=== PATIENT | male | born 1985 | race Caucasian/White ===

== ENCOUNTER 2018-05-04 17:44 | Emergency (ER) | payer OTHER ==
[2018-05-04] MEDS: diphenhydrAMINE INJ 50MG/ML VIAL (J1200) IV (19:13)
[2018-05-04] MEDS: PANTOPRAZOLE 40MG INJ (PROTONIX) (C9113) IV (19:13)
[2018-05-04] MEDS: NS 1,000 ML IV (19:13)
[2018-05-04] MEDS: KETOROLAC 30 MG/ML VIAL (J1885) IV (19:14)
[2018-05-04] MEDS: ONDANSETRON 4MG/2ML VIAL (J2405) IV (19:14)
[2018-05-04 19:28] LABS: BASO % 0.5 % (0.0-1.0); EOS # 0.3 10^3/uL (0.0-0.50); EOS % 3.3 % (0.0-3.0); HEMATOCRIT 42.6 % (42.0-52.0); HEMOGLOBIN 14.6 g/dl (13.5-17.5); IMMATURE GRANULOCYTE % 0.3 % (0-3.0); LYMPH # 2.2 10^3/uL (1.5-4.5); LYMPH % 28.3 % (24.0-44.0); MEAN CORPUSCULAR HEMOGLOBIN 31.8 pg (27.0-33.0); MEAN CORPUSCULAR HGB CONC 34.3 g/dl (32.0-36.5); MEAN CORPUSCULAR VOLUME 92.8 fl (80.0-96.0); MONO # 0.5 10^3/uL (0.0-0.8); MONO % 6.5 % (0.0-5.0); NEUTROPHILS # 4.6 10^3/uL (1.8-7.7); NEUTROPHILS % 61.1 % (36.0-66.0); PLATELET COUNT, AUTOMATED 184 10^3/uL (150-450); RED BLOOD COUNT 4.59 10^6/uL (4.30-6.10); RED CELL DISTRIBUTION WIDTH 12.1 % (11.5-14.5); WHITE BLOOD COUNT 7.6 10^3/uL (4.0-10.0)
[2018-05-04 19:42] LABS: ALBUMIN 4.2 GM/DL (3.2-5.2); ALBUMIN/GLOBULIN RATIO 1.62 (1.00-1.93); ALKALINE PHOSPHATASE 50 U/L (45-117); ALT/SGPT 16 U/L (12-78); ANION GAP 6 MEQ/L (8-16); AST/SGOT 7 U/L (7-37); BILIRUBIN,DIRECT 0.3 MG/DL (0.0-0.2); BILIRUBIN,TOTAL 0.8 MG/DL (0.2-1.0); BLOOD UREA NITROGEN 16 MG/DL (7-18); CALCIUM LEVEL 9.2 MG/DL (8.5-10.1); CARBON DIOXIDE LEVEL 30 MEQ/L (21-32); CHLORIDE LEVEL 105 MEQ/L (98-107); CREATININE FOR GFR 0.88 MG/DL (0.70-1.30); GLOMERULAR FILTRATION RATE > 60.0 (>60); GLUCOSE, FASTING 94 MG/DL (70-100); LIPASE 57 U/L (73-393); POTASSIUM SERUM 3.9 MEQ/L (3.5-5.1); SODIUM LEVEL 141 MEQ/L (136-145); TOTAL PROTEIN 6.8 GM/DL (6.4-8.2)
[2018-05-04 20:54] LABS: KETONE, URINE AUTO RFX NEGATIVE (NEGATIVE); LEUKOCYTE ESTERASE UR AUTO RFX NEGATIVE (NEGATIVE); NITRITE, URINE AUTO RFX NEGATIVE (NEGATIVE); RBC, URINE AUTO RFX 0 /HPF (0-3); SPECIFIC GRAVITY UR AUTO RFX 1.003 (1.002-1.035); SQUAM EPITHELIAL CELL UR AURFX 0 /HPF (0-6); WBC, URINE AUTO RFX 0 /HPF (0-3)
== END 2018-05-04 22:32 | disposition home or self-care (01) ==
LOC: M ED 17:44
DX: R10.9 Unspecified abdominal pain (principal)
CPT/HCPCS: C9113

== ENCOUNTER 2019-07-21 08:59 | Emergency (ER) | payer OTHER ==
[~2019-07-21] VITALS: Ht 172.7 cm; Wt 51.3 kg
[~2019-07-21 08:59] MED LIST: ALPR1TAB3; ASAC800T3 PO; DIVA500T9; QUET1TAB8 PO
[2019-07-21] MEDS ORDERED: CREO24CA PO (09:09)
[2019-07-21] MEDS ORDERED: VALA1TAB64 PO (09:09)
[2019-07-21] MEDS ORDERED: OXYC15TA76 PO (09:09)
[2019-07-21] MEDS ORDERED: NS 1,000 ML IV ONE (09:30)
[2019-07-21] MEDS ORDERED: HALOPERIDOL 5 MG/ML VIAL (J1630) IV STA (09:30)
[2019-07-21 09:50] LABS: BASO % 0.5 % (0.0-1.0); HEMATOCRIT 49.4 % (42.0-52.0); HEMOGLOBIN 16.6 g/dl (13.5-17.5); LYMPH # 1.3 10^3/uL (1.5-5.0); LYMPH % 21.3 % (24.0-44.0); MEAN CORPUSCULAR HEMOGLOBIN 30.9 pg (27.0-33.0); MEAN CORPUSCULAR HGB CONC 33.6 g/dl (32.0-36.5); MEAN CORPUSCULAR VOLUME 91.8 fl (80.0-96.0); MONO # 0.3 10^3/uL (0.0-0.8); MONO % 4.4 % (0.0-5.0); NEUTROPHILS # 4.5 10^3/uL (1.5-8.5); NEUTROPHILS % 73.6 % (36.0-66.0); PLATELET COUNT, AUTOMATED 261 10^3/uL (150-450); RED BLOOD COUNT 5.38 10^6/uL (4.30-6.10); WHITE BLOOD COUNT 6.2 10^3/uL (4.0-10.0)
--- NOTE | 2019-07-21 09:59 | REP ---
REASON: Chest pain. The technique utilized in obtaining the radiograph has magnified the cardiac silhouette and accentuated the interstitial markings. FINDINGS: The superior mediastinal structures are midline. The cardiac silhouette is unremarkable in size, shape, and position. The diaphragmatic surfaces of the lungs are regular, and the costophrenic angles are clear. The pulmonary michael are clear. The imaged osseous structures are intact. IMPRESSION: There is no acute cardiopulmonary disease. Electronically Signed by Jatin Martinez DO 07/21/2019 10:11 A
[2019-07-21 10:56] LABS: ALBUMIN 5.1 GM/DL (3.2-5.2); ALT/SGPT 21 U/L (12-78); AMYLASE 26 U/L (25-115); BILIRUBIN,DIRECT 0.6 MG/DL (0.0-0.2); BILIRUBIN,TOTAL 2.1 MG/DL (0.2-1.0); BLOOD UREA NITROGEN 17 MG/DL (7-18); CALCIUM LEVEL 9.8 MG/DL (8.5-10.1); CARBON DIOXIDE LEVEL 23 MEQ/L (21-32); CHLORIDE LEVEL 100 MEQ/L (98-107); CK-MB VALUE MASS < 1.0 NG/ML (<3.6); CPK CREATINE PHOSPHOKINASE 100 U/L (39-308); CREATININE FOR GFR 1.05 MG/DL (0.70-1.30); FREE T4 1.08 NG/DL (0.76-1.46); GLOMERULAR FILTRATION RATE > 60.0 (>60); GLUCOSE, FASTING 86 MG/DL (70-100); LIPASE 43 U/L (73-393); POTASSIUM SERUM 4.1 MEQ/L (3.5-5.1); SODIUM LEVEL 135 MEQ/L (136-145); THYROID STIMULATING HORMONE 0.354 uIU/ML (0.358-3.740); TOTAL PROTEIN 8.9 GM/DL (6.4-8.2); TROPONIN I < 0.02 NG/ML (< 0.10)
[2019-07-21 11:30] VITALS: BP 123/76
--- NOTE | 2019-07-22 07:27 | REP ---
REASON: Upper abdominal pain. PRIORS: None. The patient is status-post cholecystectomy. Multiple ultrasonographic images of the liver show mildly increased periportal echoes without evidence of a mass or ductal dilatation. The common bile duct measures 4.2 mm. The imaged portion of the pancreas and right kidney are unremarkable. There is no free fluid in the abdomen. IMPRESSION: There is a mild diffuse increase in the periportal echoes which could be secondary to a plethora of inflammatory conditions, all of which need to be correlated clinically. Does the patient have inflammatory bowel disease? Does the patient have symptoms referable to cholangitis? Certainly, the finding could be secondary to chronic changes, however there are no prior ultrasounds for comparison. Electronically Signed by Jatin Martinez DO 07/26/2019 04:12 P
--- NOTE | 2019-07-22 08:28 | ECGEPIP ---
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
--- NOTE | 2019-07-29 08:51 | ED PDOC ---
Post-Departure Follow-Up keyon lane faxed formal report of abdominal us for fu Shekhar Hayes MD Jul 29, 2019 08:51
== END 2019-07-21 11:57 | disposition left against medical advice (07) ==
LOC: M ED 08:59
DX: R07.9 Chest pain, unspecified (principal); R00.0 Tachycardia, unspecified; R10.9 Unspecified abdominal pain; G89.29 Other chronic pain; K86.9 Disease of pancreas, unspecified; K58.9 Irritable bowel syndrome, unspecified; F31.9 Bipolar disorder, unspecified; Z88.6 Allergy status to analgesic agent; Z79.899 Other long term (current) drug therapy; Z79.891 Long term (current) use of opiate analgesic
CPT/HCPCS: 71045; 76705; 80048; 80076; 81001; 82150; 82550; 82553; 83690; 84439; 84443; 85025; 93005; 93041; 94760; 96361; 96374; 99284; J1630

== ENCOUNTER → 2020-12-10 | Outpatient (CLI) | payer OTHER ==
[~2020-12-10] MED LIST changes: +CREO24CA PO; +OXYC-1 PO; +QUET100T2 PO; -QUET1TAB8 PO; +VALA1TAB5 PO
--- NOTE | 2020-12-12 00:27 | ECWPNPC ---
PATIENT NAME: JOSEPH HARRINGTON : 1985 GENDER: MALE VISIT DATE: 12/10/2020 DISCHARGE DATE: 12/10/20 1422 VISIT LOCKED DATE TIME: PHYSICIAN: DEL CHILDRESS RESOURCE: DEL CHILDRESS REASON FOR APPOINTMENT 1. CHRONIC PANCREATITIS HISTORY OF PRESENT ILLNESS GENERAL: HPI 35 YEAR OLD MALE IN FOR INITIAL PAIN CONSULT REGARDING CHRONIC PANCREATITIS. PANCREATITIS IS BELIEVED TO HAVE STEMMED FROM CHRONIC ALCOHOL USE WHEN PATIENT WAS YOUNGER. HE RATES HIS PAIN CURRENTLY AT A 6 OUT OF 10 AND DESCRIBES IT CONTINUOUS, SHARP, AND STABBING.. - - - - - -. FALL RISK SCREENING: SCREENING NO FALLS REPORTED IN THE LAST YEAR . PAIN SCREENING: PATIENT HAS A COMPLAINT OF ACUTE OR CHRONIC PAIN :YES LOCATION OF PAIN:ABDOMEN, UPPER BACK INTENSITY OF PAIN (SCALE OF 1 TO 10):6 6 ON PAIN SCALE WITH MEDICATION WHAT DOES YOUR PAIN FEEL LIKE:CONTINOUS, SHARP, STABBING, OTHER TWISTING ON THE INSIDE DURATION:CONTINOUS, AWAKENS FROM SLEEP PAIN IS INCREASED BY:ACTIVITIES, PROLONGED STANDING BREAKTHROUGH PAIN PAIN IS DECREASED BY:USE OF PAIN MEDICATIONS, SITTING NURSING NOTE: - - - - - -. PAIN CENTER INTAKE QUESTIONS: DO YOU HAVE A HISTORY OF MRSA? :YES DO YOU TAKE A BLOOD THINNERS? :NO DO YOU HAVE ANY BLEEDING DISORDERS? :NO ANY NEW NUMBNESS OR WEAKNESS IN YOUR LEGS OR ARMS? :YES BILATERAL LEG WEAKNESS AND NUMBNESS ANY PACEMAKER,DEFIBRILLATOR, OR DORSAL COLUMN STIMULATOR? :NO DO YOU HAVE ANY RASHES OR OPEN SORES? :NO ARE YOU ALLERGIC TO IV DYE? :NO ARE YOU DIABETIC? :NO ANY NEW PROBLEMS WITH YOUR MEDICATIONS? :NO HAVE YOU RECEIVED A VACCINE IN THE PAST 30 DAYS? :NO DO YOU PLAN TO RECEIVE A VACCINE IN THE NEXT 21 DAYS? :NO DO YOU NEED ANY PRESCRIPTION? :NO DO YOU TAKE ANY IMMUNOSUPPRESSIVE MEDICATIONS? :NO IS THERE A CHANCE YOU COULD BE ? :NO ARE YOU BREAST FEEDING? :NO CURRENT MEDICATIONS TAKING VALTREX 1 GM TABLET 1 TABLET ORALLY ONCE DAILY TAKING SEROQUEL 100 MG TABLET 1 TABLET AT BEDTIME ORALLY ONCE A DAY TAKING CREON [id number] UNIT CAPSULE DELAYED RELEASE PARTICLES 1 TAB ORALLY THREE TIMES DAILY TAKING VENTOLIN HFA 108 (90 BASE) MCG/ACT AEROSOL SOLUTION 2 PUFF NEEDED INHALATION EVERY 4 HRS TAKING VITAMIN D 50 MCG (2000 UT) TABLET 1 TABLET ORALLY ONCE A DAY TAKING OXYCODONE HCL 15 MG TABLET 1 TABLET ORALLY THREE TIMES DAILY TAKING SEROQUEL 25 MG TABLET 1 TABLET AT BEDTIME ORALLY ONCE A DAY TAKING CIPROFLOXACIN 500 MG/5ML (10%) SUSPENSION RECONSTITUTED 2.5 ML ORALLY EVERY 12 HRS TAKING METRONIDAZOLE 500 MG TABLET 1 TABLET ORALLY THREE TIMES A DAY TAKING ONDANSETRON HCL 4 MG TABLET 1 TABLET ORALLY ONCE A DAY NOT-TAKING LORATADINE 10 MG TABLET 1 TABLET ORALLY ONCE A DAY NOT-TAKING DEPAKOTE 500 MG TABLET DELAYED RELEASE 1 TABLET ORALLY TWICE DAILY, NOTES: TWICE A DAY NOT-TAKING GABAPENTIN 600 MG TABLET 1 CAPSULE ORALLY TWICE DAILY NOT-TAKING DICYCLOMINE HCL 10 MG CAPSULE 1 TABLET ORALLY NEEDED NOT-TAKING PRAMOXINE HCL 1 % CREAM 1 APPLICATION TO AFFECTED AREA NEEDED EXTERNALLY NOT-TAKING REMERON 30 MG TABLET 1 TABLET AT BEDTIME ORALLY ONCE A DAY NOT-TAKING COLACE 100 MG CAPSULE 1 CAPSULE NEEDED ORALLY ONCE A DAY NOT-TAKING OMEPRAZOLE 40 MG CAPSULE DELAYED RELEASE 1 CAPSULE 30 MINUTES BEFORE MORNING MEAL ORALLY ONCE A DAY NOT-TAKING FLONASE 50 MCG/ACT SUSPENSION 1 SPRAY IN EACH NOSTRIL NASALLY ONCE A DAY NOT-TAKING RIFAMPIN 300 MG CAPSULE DIRECTED ORALLY BID NOT-TAKING BACTRIM DS 800-160 MG TABLET 1 TABLET ORALLY BID NOT-TAKING BACTROBAN 2% OINTMENT DIRECTED APPLIED TOPICALLY TWICE A DAY MEDICATION LIST REVIEWED AND RECONCILED WITH THE PATIENT PAST MEDICAL HISTORY ANXIETY DEPRESSION HERPES GENITAL ALLERGIES GERD ACCUTE INFLAMMATION OF THE COLON SESSILE SERRATED ADENOMA OF THE ASCENDING COLON BENIGN SQUAMOUS EPITHELIUM OF THE FUNDUS MILD ESOPHAGITIS N/V ALLERGIES IBUPROFEN: NAUSEA/VOMITING - SIDE EFFECTS ACETAMINOPHEN: NAUSEA/VOMITING - SIDE EFFECTS SURGICAL HISTORY LASER-GENITAL AREA CHOLECYSTECTOMY BIOPSIES OF TERMINAL ILIUM AND COLON 2018 FAMILY HISTORY FATHER: ALIVE, HYPERTENSION MOTHER: ALIVE, HYPERTENSION SIBLINGS: ALIVE SON(S): ALIVE, DIAGNOSED WITH UNSPECIFIED HEART DISEASE DAUGHTER(S): ALIVE, UNSPECIFIED HEART DISEASE 1 BROTHER(S) , 3 SISTER(S) - HEALTHY. 3 SON(S) , 1 DAUGHTER(S) - HEALTHY. SON HAS HEART MURMER, DAUGHTER HAS BLOOD DISORDER OF UNKNOWN ORIGIN. SOCIAL HISTORY GENERAL: TOBACCO USE ARE YOU A:NONSMOKER LATEX QUESTIONNAIRE LATEX ALLERGY : HAVE YOU EVER DEVELOPED ANY TYPE OF REACTION AFTER HANDLING LATEX PRODUCTS SUCH RUBBER GLOVES, CONDOMS, DIAPHRAGMS, BALLOONS, SOCKS, OR UNDERWEAR?NO LATEX ALLERGY : HAVE YOU EVER DEVELOPED ANY TYPE OF REACTION DURING OR AFTER DENTAL APPOINTMENT, VAGINAL/RECTAL EXAMINATION, SURGICAL PROCEDURE, OR ANY OTHER EXPOSURE?NO LATEX RISK : HAVE YOU EVER HAD ANY DIFFICULTY BREATHING OR HIVES AFTER EATING OR HANDLING ANY FRUITS, OR VEGETABLES; SUCH KIWI, BANANAS, STONE FRUITS, OR CHESTNUTSNO LATEX RISK : DO YOU HAVE A PREVIOUS PERSONAL HISTORY OF MORE THAN NINE SURGERIES, SPINA BIFIDA, OR REPEATED CATHERIZATIONS? NO LATEX RISK : ARE YOU FREQUENTLY EXPOSED TO LATEX PRODUCTS IN YOUR OCCUPATION?NO DATE ASKED : 12/10/2020 ALCOHOL USE: NO. RECREATIONAL DRUG USE DRUG USE?YES HOW OFTEN AND HOW MUCH? MARIJUANA. A FEW TIMES A DAY. CAFFEINE 2-5/DAY-SODA. QUAKER NO JAINISM BELIEFS THAT WOULD IMPACT HEALTH CARE. LANGUAGE [place]RI[place]. EDUCATION LEVEL OF EDUCATION:NOT FINISHED HIGH SCHOOL LEARNING BARRIERS / SPECIAL NEEDS BARRIERS TO LEARNING?YES LEARNING DISABILITY READING COMPREHENSION HEARING IMPAIRED?NO VISION IMPAIRED?YES :CORRECTIVE LENSES COGNITIVELY IMPAIRED?NO READINESS TO LEARN?YES LEARNING PREFERENCES?YES :TAPES/VIDEOS LEARNING CAPABILITIES PRESENT?YES EMOTIONAL BARRIERS?YES DEPRESSION AND ANXIETY SPECIAL DEVICES?NO MEASURING CLERK NEEDED?NO OCCUPATION: UNEMPLOYED. DIET: REGULAR. EXERCISE: NO REGULAR EXERCISE. MARITAL STATUS: . OTHERS AT HOME: PARENTS. HOUSING: OWNS MOBILE HOME, PARENTS HOME. HOSPITALIZATION/MAJOR DIAGNOSTIC PROCEDURE SURGERY RELATED REVIEW OF SYSTEMS CONSTITUTIONAL: ANY RECENT FEVER NO . CHILLS NO . WEIGHT CHANGE OF UNKNOWN REASONS NO . MUSCULOSKELETAL: ANY UNUSUAL JOINT PAIN OR SWELLING NOT MENTIONED NO . SYSTEMIC LUPUS NO . ANY NEUROMUSCULAR DISORDER NOT MENTIONED NO . LYME DISEASE NO . GASTROENTEROLOGY: ANY NEW CHANGE IN BOWEL CONTROL? NO . HISTORY OF LIVER DISORDER NOT MENTIONED NO . HISTORY OF UNUSUAL ABDOMINAL PAIN OR CRAMPING NOT MENTIONED NO . NO CONSTIPATION. GENITOURINARY: ANY NEW CHANGE IN BLADDER CONTROL? NO . ANY RENAL/KIDNEY CONDITON NOT MENTIONED NO . NEUROLOGY: HISTORY OF TBI NOT MENTIONED NO . OTHER NEW NUMBNESS OR PAIN PATTERNS NOT MENTIONED NO . NEW ONSET DIZZINESS OR NEUROLOGICAL CHANGES NOT MENTIONED NO . HISTORY OF SEVERE HEADACHES NOT MENTIONED NO . HISTORY OF STROKE OR NEUROLOGICAL DISORDER NOT MENTIONED NO . CARDIOLOGY: HEART SURGERY NO . CONGESTIVE HEART FAILURE/FLUID OVERLOAD NOT MENTIONED NO . HISTORY OF CHEST PAIN,IRREGULAR HEART BEAT NOT MENTIONED NO . RESPIRATORY: SHORTNESS OF BREATH ON EXERTION, WHEEZES, UNUSUAL COUGH NOT MENTIONED NO . ENDOCRINOLOGY: ADRENAL GLAND OR THYROID DISORDERS NOT MENTIONED NO . UNUSUAL URINATION, DIZZINESS OR LETHARGY NOT MENTIONED NO . VITAL SIGNS WT 123.4 LBS, HT 68 IN, BMI 18.76 INDEX, BP 124/85 MM HG, HR 133 /MIN, RR 18 /MIN, TEMP 98 F, OXYGEN SAT % 96%, SAFE IN ENV? (Y/N) YES, REVIEWED BY: CARLA MAHAN MA. EXAMINATION GENERAL EXAMINATION: GENERALNO ACUTE DISTRESS, WELL NOURISHED AND HYDRATED. PSYCHAPPROPRIATE MOOD AND AFFECT . LUNGS:CLEAR TO AUSCULTATION BILATERALLY, NO WHEEZES, RHONCHI, RALES. HEART:NO MURMURS, REGULAR RATE AND RHYTHM. ASSESSMENTS CHRONIC PANCREATITIS - K86.1 (PRIMARY) USE OF OPIATES FOR THERAPEUTIC PURPOSES - Z79.891 TREATMENT CHRONIC PANCREATITIS REFILL OXYCODONE HCL TABLET, 10 MG, 1 TABLET, ORALLY, THREE TIMES DAILY, 30 DAYS, 90 NOTES: 35-YEAR-OLD MALE IN FOR INITIAL PAIN CONSULT REGARDING CHRONIC PANCREATITIS. PATIENT HAS BEEN ON OXYCODONE IN THE PAST WITH GOOD RESULTS. HE DOES ADMIT TO INTERMITTENT MARIJUANA USE AND THIS WAS DISCUSSED WITH PATIENT AND HE WAS INFORMED THAT GOING FORWARD SHOULD HE WISH TO CONTINUE ON OPIATES HE WOULD NOT BE ABLE TO UTILIZE MARIJUANA AT THE SAME TIME. GIVEN PRESENTING SYMPTOMS RECOMMEND OXYCODONE 10 MG 3 TIMES A DAY WITH FOLLOW-UP IN ONE MONTH TO DETERMINE EFFICACY OF TREATMENT. PATIENT HAS EXPRESSED UNDERSTANDING OF AND WAS IN AGREEMENT WITH TREATMENT PLAN. GIVEN TIME TO ASK QUESTIONS AND EXPRESS CONCERNS. , ISTOP REGISTRY REVIEWED AND DEMONSTRATES COMPLLIANCE. (REF # [id number] ). USE OF OPIATES FOR THERAPEUTIC PURPOSES LAB: URINE TEST GROUP JAHAIRA MAHAN 12/10/2020 2:12:17 PM > LAST DOSE: OXYCODONE 12/10/2020 AT 12PM; MARIJUANA 12/10/2020 AT 0800 PROCEDURE CODES FA211 ESTABILISHED PATIENT [facility] CHARGE DISPOSITION & COMMUNICATION FOLLOW UP 2 MONTHS (REASON: CHRONIC PANCREATITIS) ELECTRONICALLY SIGNED BY SHASHI TILLEY ON 12/11/2020 AT 09:57 AM EDT DISCLAIMER : THIS IS A VISIT SUMMARY EXTRACTED FROM THE [employer] CHART. IT IS NOT A COPY OF THE [employer] PROGRESS NOTE. HENOK
== END ==
LOC: M PAIN 13:00
PROVIDERS: ATTEND Family Medicine
DX: K86.1 Other chronic pancreatitis (principal); Z86.14 Personal history of Methicillin resistant Staphylococcus aureus infection; Z86.59 Personal history of other mental and behavioral disorders; Z88.6 Allergy status to analgesic agent; Z79.891 Long term (current) use of opiate analgesic; Z79.899 Other long term (current) drug therapy

== ENCOUNTER → 2021-02-09 | Outpatient (CLI) | payer OTHER ==
--- NOTE | 2021-02-11 04:01 | ECWPNPC ---
PATIENT NAME: JOSEPH HARRINGTON : 1985 GENDER: MALE VISIT DATE: 02/09/2021 DISCHARGE DATE: 02/09/21 1407 VISIT LOCKED DATE TIME: PHYSICIAN: DEL CHILDRESS RESOURCE: DEL CHILDRESS REASON FOR APPOINTMENT 1. CHRONIC PANCREATITIS HISTORY OF PRESENT ILLNESS GENERAL: HPI 35-YEAR-OLD MALE IN FOR CHRONIC PAIN FOLLOW-UP. HE FEELS HIS MEDICATIONS ARE HELPFUL AND DENIES MED SIDE EFFECTS AT THIS TIME. HE RATES HIS PAIN CURRENTLY AT A 3 OUT OF 10 AND DESCRIBES IT SHARP AND STABBING.. -. FALL RISK SCREENING: SCREENING : NO FALLS REPORTED IN THE LAST YEAR. PAIN SCREENING: PATIENT HAS A COMPLAINT OF ACUTE OR CHRONIC PAIN :YES LOCATION OF PAIN:ABDOMEN, LOW BACK INTENSITY OF PAIN (SCALE OF 1 TO 10):3 WHAT DOES YOUR PAIN FEEL LIKE:SHARP, STABBING DURATION:CONTINOUS, CONSTANT, AWAKENS FROM SLEEP PAIN IS INCREASED BY:ACTIVITIES, PROLONGED STANDING PAIN IS DECREASED BY:USE OF PAIN MEDICATIONS, SITTING NURSING NOTE: -. PAIN CENTER INTAKE QUESTIONS: DO YOU HAVE A HISTORY OF MRSA? :YES DO YOU TAKE A BLOOD THINNERS? :NO DO YOU HAVE ANY BLEEDING DISORDERS? :NO ANY NEW NUMBNESS OR WEAKNESS IN YOUR LEGS OR ARMS? :YES BILATERAL LEG WEAKNESS AND NUMBNESS ANY PACEMAKER,DEFIBRILLATOR, OR DORSAL COLUMN STIMULATOR? :NO DO YOU HAVE ANY RASHES OR OPEN SORES? :NO ARE YOU ALLERGIC TO IV DYE? :NO ARE YOU DIABETIC? :NO ANY NEW PROBLEMS WITH YOUR MEDICATIONS? :NO HAVE YOU RECEIVED A VACCINE IN THE PAST 30 DAYS? :NO DO YOU PLAN TO RECEIVE A VACCINE IN THE NEXT 21 DAYS? :NO DO YOU NEED ANY PRESCRIPTION? :NO DO YOU TAKE ANY IMMUNOSUPPRESSIVE MEDICATIONS? :NO IS THERE A CHANCE YOU COULD BE ? :NO ARE YOU BREAST FEEDING? :NO CURRENT MEDICATIONS TAKING VALTREX 1 GM TABLET 1 TABLET ORALLY ONCE DAILY TAKING SEROQUEL 100 MG TABLET 1 TABLET AT BEDTIME ORALLY ONCE A DAY TAKING CREON [id number] UNIT CAPSULE DELAYED RELEASE PARTICLES 1 TAB ORALLY THREE TIMES DAILY TAKING VENTOLIN HFA 108 (90 BASE) MCG/ACT AEROSOL SOLUTION 2 PUFF NEEDED INHALATION EVERY 4 HRS TAKING VITAMIN D 50 MCG (2000 UT) TABLET 1 TABLET ORALLY ONCE A DAY TAKING OXYCODONE HCL 10 MG TABLET 1 TABLET ORALLY THREE TIMES DAILY NOT-TAKING SEROQUEL 25 MG TABLET 1 TABLET AT BEDTIME ORALLY ONCE A DAY NOT-TAKING CIPROFLOXACIN 500 MG/5ML (10%) SUSPENSION RECONSTITUTED 2.5 ML ORALLY EVERY 12 HRS NOT-TAKING METRONIDAZOLE 500 MG TABLET 1 TABLET ORALLY THREE TIMES A DAY NOT-TAKING ONDANSETRON HCL 4 MG TABLET 1 TABLET ORALLY ONCE A DAY NOT-TAKING LORATADINE 10 MG TABLET 1 TABLET ORALLY ONCE A DAY NOT-TAKING DEPAKOTE 500 MG TABLET DELAYED RELEASE 1 TABLET ORALLY TWICE DAILY, NOTES: TWICE A DAY NOT-TAKING GABAPENTIN 600 MG TABLET 1 CAPSULE ORALLY TWICE DAILY NOT-TAKING DICYCLOMINE HCL 10 MG CAPSULE 1 TABLET ORALLY NEEDED NOT-TAKING PRAMOXINE HCL 1 % CREAM 1 APPLICATION TO AFFECTED AREA NEEDED EXTERNALLY NOT-TAKING REMERON 30 MG TABLET 1 TABLET AT BEDTIME ORALLY ONCE A DAY NOT-TAKING COLACE 100 MG CAPSULE 1 CAPSULE NEEDED ORALLY ONCE A DAY NOT-TAKING OMEPRAZOLE 40 MG CAPSULE DELAYED RELEASE 1 CAPSULE 30 MINUTES BEFORE MORNING MEAL ORALLY ONCE A DAY NOT-TAKING FLONASE 50 MCG/ACT SUSPENSION 1 SPRAY IN EACH NOSTRIL NASALLY ONCE A DAY NOT-TAKING RIFAMPIN 300 MG CAPSULE DIRECTED ORALLY BID NOT-TAKING BACTRIM DS 800-160 MG TABLET 1 TABLET ORALLY BID NOT-TAKING BACTROBAN 2% OINTMENT DIRECTED APPLIED TOPICALLY TWICE A DAY MEDICATION LIST REVIEWED AND RECONCILED WITH THE PATIENT PAST MEDICAL HISTORY ANXIETY DEPRESSION HERPES GENITAL ALLERGIES GERD ACCUTE INFLAMMATION OF THE COLON SESSILE SERRATED ADENOMA OF THE ASCENDING COLON BENIGN SQUAMOUS EPITHELIUM OF THE FUNDUS MILD ESOPHAGITIS N/V ALLERGIES IBUPROFEN: NAUSEA/VOMITING - SIDE EFFECTS ACETAMINOPHEN: NAUSEA/VOMITING - SIDE EFFECTS SOCIAL HISTORY GENERAL: TOBACCO USE ARE YOU A:NONSMOKER LATEX QUESTIONNAIRE LATEX ALLERGY : HAVE YOU EVER DEVELOPED ANY TYPE OF REACTION AFTER HANDLING LATEX PRODUCTS SUCH RUBBER GLOVES, CONDOMS, DIAPHRAGMS, BALLOONS, SOCKS, OR UNDERWEAR?NO LATEX ALLERGY : HAVE YOU EVER DEVELOPED ANY TYPE OF REACTION DURING OR AFTER DENTAL APPOINTMENT, VAGINAL/RECTAL EXAMINATION, SURGICAL PROCEDURE, OR ANY OTHER EXPOSURE?NO LATEX RISK : HAVE YOU EVER HAD ANY DIFFICULTY BREATHING OR HIVES AFTER EATING OR HANDLING ANY FRUITS, OR VEGETABLES; SUCH KIWI, BANANAS, STONE FRUITS, OR CHESTNUTSNO LATEX RISK : DO YOU HAVE A PREVIOUS PERSONAL HISTORY OF MORE THAN NINE SURGERIES, SPINA BIFIDA, OR REPEATED CATHERIZATIONS? NO LATEX RISK : ARE YOU FREQUENTLY EXPOSED TO LATEX PRODUCTS IN YOUR OCCUPATION?NO DATE ASKED : 02/09/2021 ALCOHOL USE: NO. RECREATIONAL DRUG USE DRUG USE?NO MARIJUANA LAST TIME 08 WEEKS AND 2 DAYS CAFFEINE 2-5/DAY-SODA. MANDAEN NO ORIENTAL ORTHODOX BELIEFS THAT WOULD IMPACT HEALTH CARE. LANGUAGE AFGHAN. EDUCATION LEVEL OF EDUCATION:NOT FINISHED HIGH SCHOOL LEARNING BARRIERS / SPECIAL NEEDS CHANGE FROM LAST VISIT?NO BARRIERS TO LEARNING?YES LEARNING DISABILITY READING COMPREHENSION HEARING IMPAIRED?NO VISION IMPAIRED?YES :CORRECTIVE LENSES COGNITIVELY IMPAIRED?NO READINESS TO LEARN?YES LEARNING PREFERENCES?YES :TAPES/VIDEOS LEARNING CAPABILITIES PRESENT?YES EMOTIONAL BARRIERS?YES DEPRESSION AND ANXIETY SPECIAL DEVICES?NO MOLDER INFLATED BALL NEEDED?NO OCCUPATION: UNEMPLOYED. DIET: REGULAR. EXERCISE: NO REGULAR EXERCISE. MARITAL STATUS: . OTHERS AT HOME: PARENTS. HOUSING: OWNS MOBILE HOME, PARENTS HOME. REVIEW OF SYSTEMS CONSTITUTIONAL: ANY RECENT FEVER NO . CHILLS NO . WEIGHT CHANGE OF UNKNOWN REASONS NO . GASTROENTEROLOGY: NEW UNEXPLAINABLE CHANGES IN BOWEL CONTROL NO . CONSTIPATION NO . GENITOURINARY: ANY NEW CHANGE IN BLADDER CONTROL? NO . NEUROLOGY: NEW ONSET DIZZINESS OR NEUROLOGICAL CHANGES NOT MENTIONED NO . NEW NUMBNESS OR PAIN PATTERNS NOT MENTIONED AND PERTINENT TO TODAY'S VISIT NO . CARDIOLOGY: NEW CHEST PRESSURE NO . PATIENT DENIES NO . RESPIRATORY: UNEXPLAINABLE COUGH NO . NEW SHORTNESS OF BREATH NO . VITAL SIGNS WT 119.6 LBS, HT 68 IN, BMI 18.18 INDEX, BP 137/90 MM HG, HR 107 /MIN, RR 18 /MIN, TEMP 98.5 F, OXYGEN SAT % 99%, SAFE IN ENV? (Y/N) YES, REVIEWED BY: CARLA MAHAN MA. EXAMINATION GENERAL EXAMINATION: GENERALNO ACUTE DISTRESS, WELL NOURISHED AND HYDRATED. PSYCHAPPROPRIATE MOOD AND AFFECT . LUNGS:CLEAR TO AUSCULTATION BILATERALLY, NO WHEEZES, RHONCHI, RALES. HEART:NO MURMURS, REGULAR RATE AND RHYTHM. ASSESSMENTS CHRONIC PANCREATITIS - K86.1 (PRIMARY), RISK: (NULL) TREATMENT CHRONIC PANCREATITIS NOTES: 35-YEAR-OLD MALE IN FOR CHRONIC PAIN FOLLOW-UP. GIVEN PRESENTING SYMPTOMS RECOMMEND CONTINUATION OF CURRENT MEDICATION REGIMEN WITH FOLLOW-UP IN 3 MONTHS. PATIENT HAS EXPRESSED UNDERSTANDING OF AND WAS IN AGREEMENT WITH TREATMENT PLAN. GIVEN TIME TO ASK QUESTIONS AND EXPRESS CONCERNS. ISTOP REGISTRY REVIEWED AND DEMONSTRATES COMPLLIANCE. (REF #[id number] ) BRINGS IN MEDICATIONS WHICH IS APPROPRIATE FOR WHAT WAS DISPENSED. RECENT URINE TOXICOLOGY REVIEWED. NO UNAUTHORIZED MEDICATIONS. NO ILLICIT SUBSTANCES AND PRESCRIBED MEDICATIONS WERE PRESENT. PROCEDURE CODES FA211 ESTABILISHED PATIENT [facility] CHARGE DISPOSITION & COMMUNICATION FOLLOW UP 3 MONTHS (REASON: PANCREATITIS ) ELECTRONICALLY SIGNED BY SHASHI TILLEY ON 02/10/2021 AT 09:47 AM EDT DISCLAIMER : THIS IS A VISIT SUMMARY EXTRACTED FROM THE [employer] CHART. IT IS NOT A COPY OF THE [employer] PROGRESS NOTE. HENOK
== END ==
LOC: M PAIN 13:45
PROVIDERS: ATTEND Family Medicine
DX: K86.1 Other chronic pancreatitis (principal); G89.29 Other chronic pain; Z86.14 Personal history of Methicillin resistant Staphylococcus aureus infection; Z86.59 Personal history of other mental and behavioral disorders; Z88.6 Allergy status to analgesic agent; Z79.891 Long term (current) use of opiate analgesic; Z79.899 Other long term (current) drug therapy

== ENCOUNTER → 2021-05-10 | Outpatient (CLI) | payer OTHER | LOC: M PAIN 13:00 | PROVIDERS: ATTEND Anesthesiology | DX: Z79.891 Long term (current) use of opiate analgesic (principal) ==

== ENCOUNTER → 2021-07-09 | Outpatient (CLI) | payer OTHER | LOC: M PAIN 15:15 | PROVIDERS: ATTEND Anesthesiology | DX: K86.1 Other chronic pancreatitis (principal); R10.9 Unspecified abdominal pain; F41.9 Anxiety disorder, unspecified; F32.A Depression, unspecified; K21.9 Gastro-esophageal reflux disease without esophagitis; Z79.891 Long term (current) use of opiate analgesic; Z79.899 Other long term (current) drug therapy; Z88.6 Allergy status to analgesic agent ==

== ENCOUNTER → 2021-08-25 | Outpatient (CLI) | payer OTHER | LOC: M PAIN 11:45 | PROVIDERS: ATTEND Nurse Practitioner Family | DX: K86.1 Other chronic pancreatitis (principal); F41.9 Anxiety disorder, unspecified; F32.A Depression, unspecified; K21.9 Gastro-esophageal reflux disease without esophagitis; Z79.891 Long term (current) use of opiate analgesic; Z88.6 Allergy status to analgesic agent ==

== ENCOUNTER → 2021-11-05 | Outpatient (CLI) | payer OTHER | LOC: M PAIN 14:45 | PROVIDERS: ATTEND Nurse Practitioner Family | DX: K86.1 Other chronic pancreatitis (principal); F41.9 Anxiety disorder, unspecified; F32.A Depression, unspecified; A60.02 Herpesviral infection of other male genital organs; J30.9 Allergic rhinitis, unspecified; K21.00 Gastro-esophageal reflux disease with esophagitis, without bleeding; Z79.891 Long term (current) use of opiate analgesic; Z79.899 Other long term (current) drug therapy; Z88.6 Allergy status to analgesic agent ==

== ENCOUNTER → 2021-12-03 | Outpatient (CLI) | payer OTHER | LOC: M PAIN 11:30 | PROVIDERS: ATTEND Nurse Practitioner Family | DX: Z79.899 Other long term (current) drug therapy (principal); Z53.8 Procedure and treatment not carried out for other reasons ==

== ENCOUNTER → 2021-12-10 | Outpatient (CLI) | payer OTHER | LOC: M PAIN 08:15 | PROVIDERS: ATTEND Nurse Practitioner Family | DX: Z79.891 Long term (current) use of opiate analgesic (principal) ==

== ENCOUNTER → 2022-01-07 | Outpatient (CLI) | payer OTHER | LOC: M PAIN 14:45 | PROVIDERS: ATTEND Anesthesiology | DX: K86.1 Other chronic pancreatitis (principal); R10.9 Unspecified abdominal pain; F41.9 Anxiety disorder, unspecified; F32.A Depression, unspecified; J30.9 Allergic rhinitis, unspecified; K21.9 Gastro-esophageal reflux disease without esophagitis; K20.90 Esophagitis, unspecified without bleeding; A60.02 Herpesviral infection of other male genital organs; Z79.891 Long term (current) use of opiate analgesic; Z79.899 Other long term (current) drug therapy; Z88.6 Allergy status to analgesic agent ==

== ENCOUNTER → 2025-04-08 | Outpatient (REF) | payer OTHER ==
[2025-04-08 13:10] LABS: APPEARANCE, URINE CLEAR (CLEAR); BACTERIA, URINE AUTO NEGATIVE (NEGATIVE); BILIRUBIN, URINE AUTO NEGATIVE (NEGATIVE); BLOOD, URINE BLOOD NEGATIVE (NEGATIVE); GLUCOSE, URINE (UA) AUTO NEGATIVE (NEGATIVE); KETONE, URINE AUTO NEGATIVE (NEGATIVE); LEUKOCYTE ESTERASE, URINE AUTO NEGATIVE (NEGATIVE); NITRITE, URINE AUTO NEGATIVE (NEGATIVE); PROTEIN, URINE AUTO NEGATIVE (NEGATIVE); RBC, URINE AUTO 0 /HPF (0-3); SPECIFIC GRAVITY URINE AUTO 1.010 (1.002-1.035); SQUAMOUS EPITHELIAL CELL UR AU 0 /HPF (0-6); UROBILINOGEN, URINE AUTO 0.2 mg/dL (0.0-2.0); WBC, URINE AUTO 0 /HPF (0-3)
== END ==
LOC: M SMT 12:53
PROVIDERS: ATTEND Nurse Practitioner Family
DX: R39.9 Unspecified symptoms and signs involving the genitourinary system (principal)